=== PATIENT | female | born 1935 | race Caucasian/White ===

== ENCOUNTER 2020-04-11 14:09 | Inpatient (IN) | payer MEDICARE, SELFPAY ==
[2020-04-11] VITALS (18 sets, daily range): BP systolic 112–168; BP diastolic 66–89; PULSE 88–103; RESP 16–28; TEMP 36.7–37.1; O2SAT 81–100; BMI 22.3
--- NOTE | 2020-04-11 14:50 | XR_ITS ---
WS: [id number] PORTABLE CHEST HISTORY: dyspnea COMPARISON: 01/08/2020 Hyperinflated lungs with dense consolidation in the mid and lower RIGHT lung. Complete obscuration of the RIGHT diaphragm. Additional interstitial thickening at the LEFT lung base is probably chronic. S mall associated RIGHT pleural effusion. Cardiac size: Normal. Mediastinum/Aorta: Mild atherosclerosis aorta. Osteopenia. XR/XR chest 1V portable [id number] IMPRESSION: Dense consolidation consistent with pneumonia in the mid and lower RIGHT lung. Chronic emphysema. Small RIGHT pleural effusion.
--- NOTE | 2020-04-11 14:51 | ECG_ITS ---
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 Measurements Intervals [place] Rate: 96 P: 80 [place]: 136 QRS: -50 QRSD: 78 T: 79 QT: 328 QTc: 415 Interpretive Statements SINUS RHYTHM WITH OCCASIONAL SUPRAVENTRICULAR PREMATURE COMPLEXES LEFT AXIS DEVIATION [QRS AXIS < -30] LOW QRS VOLTAGE IN EXTREMITY LEADS [QRS DEFLECTION < 0.5 mV IN LIMB LEADS] POSSIBLE ANTERIOR MYOCARDIAL INFARCTION , OF INDETERMINATE AGE [30 ms Q WAVE IN V3/V4, OR R < 0.2 mV IN V4] No previous ECG available for comparison Electronically Signed On 04-11-2020 15:34:19 CDT by Ammy Carr M.D. [email or web address] Solutionsaultman [email or web address] community [email or web address]/[email or web address]/[id number]
--- NOTE | 2020-04-11 14:57 | W.ED.SOB ---
HPI - SOB/Dyspnea General: Chief Complaint: Shortness of Breath/Dyspnea Stated Complaint: low o2, sob Time Seen by Provider: 04/11/20 14:49 History of Present Illness: HPI Narrative: Patient presents to the ER with a complaint of severe shortness of breath. In triage her O2 saturation was 80% on 4 L of oxygen by nasal cannula. Patient was placed on a nonrebreather mask and O2 saturations have improved remained in the 80s. Patient is O2 dependent at home and does take breathing treatments. She states that her PCP is evaluating her for COPD/emphysema. Patient also complains of PND, orthopnea, and exertional dyspnea. She has slight swelling of her feet and ankles and also feels bloated in the abdomen. MD elicited complaint: shortness of breath Pertinent past history: COPD (probable) and pneumonia Onset (ago): week(s) Context: occurred during exertion Timing: constant and progressively worsening Severity: severe Exacerbating factors: lying flat, exertion and smoke Relieving factors: nothing Associated symptoms: Reports cough and diaphoresis Treatment prior to arrival: oxygen Review of Systems General: Reports: 10 or more systems reviewed and unremarkable except in HPI and below Const: Reports: diaphoresis Physical Exam Const: COMMON NORMALS: well nourished GENERAL APPEARANCE: cooperative, in distress and ill appearing HENMT: COMMON NORMALS: normocephalic and atraumatic HEAD & SCALP: normal to inspection, normocephalic and atraumatic Eye: GENERAL EYE: appearance normal, both eyes and all related structures Neck/C-Spine: COMMON NORMALS: full ROM, no lymphadenopathy and no meningeal signs GENERAL: Yes normal visual inspection CERVICAL SPINE: Yes cervical ROM normal and Yes normal cervical lordosis Chest: COMMONS NORMALS: normal inspection of the chest and normal palpation of entire chest wall Resp: EFFORT & INSPECTION: Yes respiratory distress, Yes labored and Yes uses accessory muscles AUSCULTATION: diminished lung sounds Cardio: COMMON NORMALS: regular rate, regular rhythm, S1 normal heart sound present and S2 normal heart sound present JUGULAR VENOUS DISTENTION: no JVD PALPATION: normal PMI RATE: regular rate RHYTHM: regular rhythm HEART SOUNDS: S1 normal heart sound present and S2 normal heart sound present GI: COMMON NORMALS: Soft to palpation and No hepatosplenomegaly present INSPECTION: Yes normal to inspection PALPATION: Yes Soft to palpation and Yes No hepatosplenomegaly present PERCUSSION: normal to percussion : COMMON NORMALS: Yes no CVA tenderness BLADDER/KIDNEY EXAM: Yes no CVA tenderness Back/Pelvis: COMMON NORMALS: no CVA tenderness, thoracic and lumbar spine normal to inspection and thoraco-lumbar ROM normal Extremity: COMMON NORMALS: normal to inspection, full ROM and capillary refill normal Neuro: MENINGEAL SIGNS: Yes no meningeal signs Skin: COMMON NORMALS: no rashes or lesions noted, no wounds and turgor normal GENERAL SKIN EXAM: no rashes or lesions noted, elasticity normal and turgor normal LESIONS: no lesions RASHES: no rashes TRAUMA: no lacerations or abrasions HAIR: normal NAILS: normal Course Vital Signs: Vital signs: Vital Signs Temperature 98.8 F 04/11/20 14:26 Pulse Rate 101 H 04/11/20 17:32 Respiratory Rate 18 04/11/20 17:32 Blood Pressure 121/88 04/11/20 17:32 Pulse Oximetry 97 04/11/20 17:32 MDM - SOB/Dyspnea Lab Data: Labs: Lab Results 04/11/20 04/11/20 04/11/20 Range/Units 14:55 14:59 14:59 WBC 14.9 H (4.0-10.0) 10^3/ uL RBC 6.02 H (4.1-5.3) 10^6/u L Hgb 17.0 H (11.5-15.3) g/dL Hct 50.5 H (37.0-47.0) % MCV 83.9 (81-99) fL MCH 28.2 (28.0-34.0) pg MCHC 33.7 (30.0-36.0) g/dL RDW 14.3 (12.1-15.1) % Plt Count 285 (130-400) 10^3/c mm MPV 8.9 (7.4-10.4) fL Neut % (Auto) 86.0 % Lymph % (Auto) 7.1 % Hardin % (Auto) 5.7 % Eos % (Auto) 0.1 % Baso % (Auto) 0.2 % Neut # (Auto) 12.80 H (1.8-7.7) 10^3/u L Lymph # (Auto) 1.1 (0.8-4.8) 10^3/u L Hardin # (Auto) 0.9 (0.2-0.9) 10^3/u L Eos # (Auto) 0.0 (0.0-0.8) 10^3/u L Baso # (Auto) 0.0 (0.0-0.1) 10^3/u L Nucleated RBC % (a uto) 0 % Nucleated RBCs # 0.0 /100WBC Specimen Type Arterial Sample Site Radial, left ABG pH 7.42 (7.35-7.45) ABG pCO2 32.1 L (35-45) mmHg ABG pO2 51.9 L (80.0-100.0) mmH g ABG HCO3 20.8 L (22-26) mmol/L ABG Base Excess -2.6 L (-2.0-2.0) mmol/ L Niraj Test Pos Hematocrit 50.5 H (37-47) % O2 Delivery Device Nrb O2 Liters/Min 15.0 % Public Relations Counselor ID cak Sodium 121 L (136-145) mmol/L Potassium 4.9 (3.5-5.1) mmol/L Chloride 85 L (98-107) mmol/L Carbon Dioxide 23 (22-29) mmol/L Anion Gap 17.9 (5-19) BUN 22 (8-23) mg/dL Creatinine 1.2 H (0.5-0.9) mg/dL Glucose 147 H (65-115) mg/dL Calculated Osmolal ity 251 L (285-295) mOsm/k g Lactic Acid (0.5-2.2) mmol/L Lactic Acid (Sepsi s) (0.5-2.2) mmol/L Calcium 8.8 (8.5-10.5) mg/dL Total Bilirubin 0.5 (0.15-1.2) mg/dL AST 28 (0-32) U/L ALT 28 (0-33) U/L Alkaline Phosphata se 81 (35-105) IU/L Troponin T Baselin e (0-10) ng/L Troponin T 120 Min nightmute (0-10) ng/L Delta Troponin T (0-10) ABS# NT-Pro-B Natriuret Pep 1496 H (0-450) pg/mL Total Protein 6.9 (6.6-8.7) g/dL Albumin 3.7 (3.5-5.2) g/dL Globulin 3.2 (1.3-4.6) g/dL Influenza Type A A g (Negative) Influenza Type B A g (Negative) 04/11/20 04/11/20 04/11/20 Range/Units 14:59 14:59 15:05 WBC (4.0-10.0) 10^3/ uL RBC (4.1-5.3) 10^6/u L Hgb (11.5-15.3) g/dL Hct (37.0-47.0) % MCV (81-99) fL MCH (28.0-34.0) pg MCHC (30.0-36.0) g/dL RDW (12.1-15.1) % Plt Count (130-400) 10^3/c mm MPV (7.4-10.4) fL Neut % (Auto) % Lymph % (Auto) % Hardin % (Auto) % Eos % (Auto) % Baso % (Auto) % Neut # (Auto) (1.8-7.7) 10^3/u L Lymph # (Auto) (0.8-4.8) 10^3/u L Hardin # (Auto) (0.2-0.9) 10^3/u L Eos # (Auto) (0.0-0.8) 10^3/u L Baso # (Auto) (0.0-0.1) 10^3/u L Nucleated RBC % (a uto) % Nucleated RBCs # /100WBC Specimen Type Sample Site ABG pH (7.35-7.45) ABG pCO2 (35-45) mmHg ABG pO2 (80.0-100.0) mmH g ABG HCO3 (22-26) mmol/L ABG Base Excess (-2.0-2.0) mmol/ L Niraj Test Hematocrit (37-47) % O2 Delivery Device O2 Liters/Min % Public Relations Counselor ID Sodium (136-145) mmol/L Potassium (3.5-5.1) mmol/L Chloride (98-107) mmol/L Carbon Dioxide (22-29) mmol/L Anion Gap (5-19) BUN (8-23) mg/dL Creatinine (0.5-0.9) mg/dL Glucose (65-115) mg/dL Calculated Osmolal ity (285-295) mOsm/k g Lactic Acid 2.2 (0.5-2.2) mmol/L Lactic Acid (Sepsi s) (0.5-2.2) mmol/L Calcium (8.5-10.5) mg/dL Total Bilirubin (0.15-1.2) mg/dL AST (0-32) U/L ALT (0-33) U/L Alkaline Phosphata se (35-105) IU/L Troponin T Baselin e 209 H* (0-10) ng/L Troponin T 120 Min nightm[place] (0-10) ng/L Delta Troponin T (0-10) ABS# NT-Pro-B Natriuret Pep (0-450) pg/mL Total Protein (6.6-8.7) g/dL Albumin (3.5-5.2) g/dL Globulin (1.3-4.6) g/dL Influenza Type A A g Negative (Negative) Influenza Type B A g Negative (Negative) 04/11/20 04/11/20 Range/Units 17:25 17:25 WBC (4.0-10.0) 10^3/ uL RBC (4.1-5.3) 10^6/u L Hgb (11.5-15.3) g/dL Hct (37.0-47.0) % MCV (81-99) fL MCH (28.0-34.0) pg MCHC (30.0-36.0) g/dL RDW (12.1-15.1) % Plt Count (130-400) 10^3/c mm MPV (7.4-10.4) fL Neut % (Auto) % Lymph % (Auto) % Hardin % (Auto) % Eos % (Auto) % Baso % (Auto) % Neut # (Auto) (1.8-7.7) 10^3/u L Lymph # (Auto) (0.8-4.8) 10^3/u L Hardin # (Auto) (0.2-0.9) 10^3/u L Eos # (Auto) (0.0-0.8) 10^3/u L Baso # (Auto) (0.0-0.1) 10^3/u L Nucleated RBC % (a uto) % Nucleated RBCs # /100WBC Specimen Type Sample Site ABG pH (7.35-7.45) ABG pCO2 (35-45) mmHg ABG pO2 (80.0-100.0) mmH g ABG HCO3 (22-26) mmol/L ABG Base Excess (-2.0-2.0) mmol/ L Niraj Test Hematocrit (37-47) % O2 Delivery Device O2 Liters/Min % Public Relations Counselor ID Sodium (136-145) mmol/L Potassium (3.5-5.1) mmol/L Chloride (98-107) mmol/L Carbon Dioxide (22-29) mmol/L Anion Gap (5-19) BUN (8-23) mg/dL Creatinine (0.5-0.9) mg/dL Glucose (65-115) mg/dL Calculated Osmolal ity (285-295) mOsm/k g Lactic Acid (0.5-2.2) mmol/L Lactic Acid (Sepsi s) 2.3 H (0.5-2.2) mmol/L Calcium (8.5-10.5) mg/dL Total Bilirubin (0.15-1.2) mg/dL AST (0-32) U/L ALT (0-33) U/L Alkaline Phosphata se (35-105) IU/L Troponin T Baselin e (0-10) ng/L Troponin T 120 Min [place] 293.6 H (0-10) ng/L Delta Troponin T 84.6 H* (0-10) ABS# NT-Pro-B Natriuret Pep (0-450) pg/mL Total Protein (6.6-8.7) g/dL Albumin (3.5-5.2) g/dL Globulin (1.3-4.6) g/dL Influenza Type A A g (Negative) Influenza Type B A g (Negative) Discharge Plan Discharge Patient Disposition: Admitted As Inpatient Clinical Impression: Acute exacerbation of chronic obstructive airways disease, Non-ST elevation NH (NSTEMI) Pneumonia Qualifiers: Pneumonia type: due to unspecified organism Laterality: right Lung location: lower lobe of lung Qualified Code(s): J18.9 - Pneumonia, unspecified organism Congestive heart failure Qualifiers: Heart failure type: unspecified Heart failure chronicity: acute Qualified Code(s): I50.9 - Heart failure, unspecified Condition: Fair Referrals: Jese Marinelli MD [Primary Care Provider] - Coding Level of Care Code ED Photo Engraver for Chg Fwd Exam Comprehensive
[2020-04-11] MEDS: ipratropium-albuterol 3 mL Neb INHALATION (15:04)
[2020-04-11 15:08] LABS: ABG PCO2 32.1 mmHg (35-45); ABG PH Result 7.42 (7.35-7.45); Arterial Blood Gas Hematocrit 50.5 % (37-47); Base Excess ABG -2.6 mmol/L (-2.0-2.0); Blood Gas Allen Test Pos; Blood Gas Sample Site Radial, left; Blood Gas Sample Type Arterial; HCO3 ABG 20.8 mmol/L (22-26); Oxygen Device NRB; PO2 ABG 51.9 mmHg (80.0-100.0)
[2020-04-11 15:18] LABS: Basophils % 0.2 %; Eosinophils % 0.1 %; Hematocrit 50.5 % (37.0-47.0); Lymphocytes # 1.1 10^3/uL (0.8-4.8); Lymphocytes % 7.1 %; Mean Corpuscular HGB Conc 33.7 g/dL (30.0-36.0); Mean Corpuscular Hemoglobin 28.2 pg (28.0-34.0); Mean Corpuscular Volume 83.9 fL (81-99); Mean Platelet Volume 8.9 fL (7.4-10.4); Monocytes # 0.9 10^3/uL (0.2-0.9); Monocytes % 5.7 %; Nucleated Red Blood Cells % 0 %; Platelet Count 285 10^3/cmm (130-400); Red Blood Count 6.02 10^6/uL (4.1-5.3); Red Cell Distribution Width 14.3 % (12.1-15.1); White Blood Count 14.9 10^3/uL (4.0-10.0)
[2020-04-11 15:19] LABS: Lactic Sepsis W/Reflex 2.2 mmol/L (0.5-2.2)
[2020-04-11 15:26] LABS: Troponin(5th) Baseline 209 ng/L (0-10)
[2020-04-11] MEDS: sodium chloride 0.9% 500 ML 999 ML IV (15:28)
[2020-04-11 15:31] LABS: Alanine Aminotransferase 28 U/L (0-33); Albumin Level 3.7 g/dL (3.5-5.2); Alkaline Phosphatase 81 IU/L (35-105); Anion Gap 17.9 (5-19); Aspartate Amino Transferase 28 U/L (0-32); Blood Urea Nitrogen 22 mg/dL (8-23); Calcium 8.8 mg/dL (8.5-10.5); Carbon Dioxide 23 mmol/L (22-29); Chloride 85 mmol/L (98-107); Globulin 3.2 g/dL (1.3-4.6); Glucose 147 mg/dL (65-115); NT Pro B Type Natriuretic Pept 1496 pg/mL (0-450); Osmolality Calculated 251 mOsm/kg (285-295); Potassium 4.9 mmol/L (3.5-5.1); Sodium 121 mmol/L (136-145); Total Bilirubin 0.5 mg/dL (0.15-1.2); Total Protein 6.9 g/dL (6.6-8.7)
[2020-04-11] MEDS: cefTRIAXone 1,000 MG in sodium chloride 0.9% (plus) 50 ML 100 MG IV (16:09)
[2020-04-11] MEDS: azithromycin 500 MG in sodium chloride 0.9% 250 ML 250 MG IV (16:10)
--- NOTE | 2020-04-11 16:22 | PC.NURSE ---
pt on droplet precautions after covid 19 test
[2020-04-11 16:50] LABS: Reflex Lactate Order REFLEX LACTIC ORDERD
--- NOTE | 2020-04-11 16:51 | ECG_ITS ---
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 Measurements Intervals [place] Rate: 96 P: 72 NE: 133 QRS: -44 QRSD: 79 T: 99 QT: 343 QTc: 435 Interpretive Statements SINUS RHYTHM WITH OCCASIONAL SUPRAVENTRICULAR PREMATURE COMPLEXES LEFT AXIS DEVIATION [QRS AXIS < -30] LOW QRS VOLTAGE IN EXTREMITY LEADS [QRS DEFLECTION < 0.5 mV IN LIMB LEADS] ANTEROSEPTAL MYOCARDIAL INFARCTION , OF INDETERMINATE AGE [40+ ms Q WAVE IN V1-V4] Compared to ECG 04/11/2020 15:11:26 No significant changes Electronically Signed On 04-11-2020 17:15:37 CDT by Ammy Carr M.D. [id number]
[2020-04-11 17:10] LABS: Influenza A by IFA Negative (Negative); Influenza B by IFA Negative (Negative)
[2020-04-11 17:48] LABS: Lactic Acid level (Lactate) 2.3 mmol/L (0.5-2.2)
[2020-04-11 17:57] LABS: Troponin 5 2HR 293.6 ng/L (0-10); Troponin 5 2HR Delta 84.6 ABS# (0-10)
--- NOTE | 2020-04-11 18:28 | P.HP_ITS ---
Providers/Chief Complaint Primary Care Provider: Jese Marinelli MD Chief Complaint: low o2, sob History of Present Illness Natasha Larose is a 84 year old female who presents to the hospital reporting she is short of breath. She reports she has been short of breath at least for the last several months, but it is been worse lately. She denies any fever. She reports she has been coughing. She has had some nausea but no vomiting. She denies any history of COVID exposure. She denies any hemoptysis. She has no chest discomfort. She reports her legs have been very swollen and she is been unable to lay flat at night. She reports she was recently put on oxygen by her physician. While in the emergency department she was noted to be very hypoxic and therefore was placed on a nonrebreather initially, and transition to BiPAP. Review of Systems General: Reports: 10 or more systems reviewed and unremarkable except in HPI and below Const: Denies: fever(s) or chills Eyes: Denies: change in vision ENMT: Denies: throat pain Card: Denies: chest pain Resp: Reports: dyspnea, productive cough and wheezing; Denies: hemoptysis GI: Reports: nausea; Denies: abdominal pain or vomiting : Denies: flank pain Musc: Denies: neck pain Skin/Breast: Denies: rash Neuro: Denies: headache(s) Psych: Denies: anxiety Endo: Denies: polyuria Hector/Lymph: Denies: easy bruising All/Imm: Denies: urticaria Medications/Allergies Home Medications Medication Instructions Recorded Confirmed Last Taken Type albuterol sulfate 2 puff INHALATION Q4H PRN 04/11/20 04/11/20 Unknown History aspirin 81 mg PO DAILY 04/11/20 04/11/20 04/10/20 History hydrocodone-acetaminophen 1 tab PO Q6H PRN 04/11/20 04/11/20 Unknown History lisinopril-hydrochlorothiazide 1 tab PO DAILY 04/11/20 04/11/20 04/10/20 History ropinirole 2 mg PO BID 04/11/20 04/11/20 04/10/20 History tramadol 50 mg PO DAILY PRN 04/11/20 04/11/20 04/11/20 History Allergies Allergy/AdvReac Type Severity Reaction Status Date / Time amoxicillin Allergy Unknown Unknown Verified 07/09/20 15:08 pineapple Allergy Unknown Unknown Verified 04/11/20 15:08 seafood Allergy Unknown Unknown Uncoded 04/11/20 15:08 PFSH Acute PFSH: Medical History (Updated 04/11/20 @ 18:48 by Landon Lagunas MD) COPD (chronic obstructive pulmonary disease) Hyperlipidemia Hypertension Restless leg syndrome Tobacco dependency Surgical History (Updated 04/11/20 @ 18:43 by Landon Lagunas MD) History of knee surgery History of tonsillectomy Family History (Updated 04/11/20 @ 18:43 by Landon Lagunas MD) Other CAD (coronary artery disease) Social History (Updated 04/11/20 @ 18:43 by Landon Lagunas MD) Smoking and tobacco status: current every day smoker Alcohol intake: never Substance/Drug Use: never Vitals/I&O/Wt Last Vital Signs Temp 98.8 F 04/11/20 14:26 Pulse 101 H 04/11/20 17:32 Resp 18 04/11/20 17:32 BP 121/88 04/11/20 17:32 Pulse Ox 97 04/11/20 17:32 04/11/20 04/11/20 04/11/20 06:59 14:59 22:59 Intake Total 50 / 50 Balance 50 / 50 Weight last 48 hrs Weight 58.967 kg Physical Exam Narrative: EXAM NARRATIVE: General exam is a white female, on BiPAP, with mild to moderate respiratory distress HEENT: Oropharynx not examined secondary to BiPAP. Pupils equally round. Neck is supple no lymphadenopathy or thyromegaly Cardiovascular regular rate and rhythm, heart sounds distant, no obvious murmur Lungs diminished breath sounds bilaterally. Bilateral expiratory wheezes. Markedly diminished breath sounds on the right. Abdomen is soft, positive bowel sounds, no obvious organomegaly. deferred Extremities 2+ edema bilaterally to the knees Neuro no obvious focal deficits Skin no rash Data : 04/11/20 14:59 04/11/20 14:59 Micro: Microbiology 04/11/20 17:25 Blood Culture - Preliminary Blood SPECIMEN COLLECTED 04/11/20 14:59 Blood Culture - Preliminary Blood SPECIMEN COLLECTED Other data: EKG demonstrates normal sinus rhythm, normal axis, poor R wave progression, Q waves anteriorly. Cannot rule out previous anterior septal myocardial infarction. Troponin baseline is 209, with 120 minutes of approximately 290 and a delta of approximately 85. BNP elevated at 1496. Influenza negative. COVID pending. Chest x-ray shows right lung pneumonia, possible small effusion. A&P Assessment and plan (1) Pneumonia: Admission to ICU. High oxygen requirement of 70% by BiPAP. Significant right lung pneumonia, lower lobe. Cannot exclude malignancy. Initiate vancomycin, cefepime secondary to penicillin allergy. Check sputum culture CT chest, when able Requiring BiPAP Rule out COVID Status: Acute Qualifiers: Laterality: right Lung location: lower lobe of lung Pneumonia type: due to unspecified organism Qualified Code(s): J18.9 - Pneumonia, unspecified organism (2) Non-ST elevation AL (NSTEMI): No current chest pain Significant change in delta troponin abnormal EKG possibly showing previous anterior AL Full dose anticoagulation Aspirin Statin Telemetry Status: Acute (3) Congestive heart failure: Unknown type Significant lower extremity edema Lasix 60 mg IV now and 40 mg every 12 hours Check echocardiogram Status: Acute Qualifiers: Heart failure chronicity: acute Heart failure type: unspecified Qualified Code(s): I50.9 - Heart failure, unspecified (4) Acute exacerbation of chronic obstructive airways disease: IV steroids Frequent nebs, inhaled steroids BiPAP Status: Acute (5) Hyponatremia: Lasix IV currently. Likely attributed to heart failure. Repeat BMP, 4 hours No IV fluids. She is fluid overloaded. Status: Acute (6) Respiratory failure: BiPAP See notations above Status: Acute (7) Tobacco dependency: Counseled on abstinence Status: Acute Additional A&P Information Elevated blood sugar. Check A1c. Hypertension History of hyperlipidemia. Statin will be initiated. This is secondary to elevated troponin Restless leg syndrome, continue current medicines Multiple other medical problems as outlined in past medical history. Full code Lovenox will serve for DVT prophylaxis. Check urinalysis, TSH Attestations Medical Necessity Statement*: Will need greater than 2 midnight stay for treatment of pneumonia and multiple other comorbidities Critical Care Time: 45 minutes spent at bedside in critical care when this patient with respiratory failure requiring BiPAP on high amount of FiO2 with multiple comorbidities with high chance of needing intubation. Coding Level of Care Code Acute Assistant Executive Housekeeper for Jojo Story Diagnoses Pneumonia J18.9 Laterality: right Lung location: lower lobe of lung Pneumonia type: due to unspecified organism Non-ST elevation AL (NSTEMI) I21.4 Congestive heart failure I50.9 Heart failure chronicity: acute Heart failure type: unspecified Acute exacerbation of chronic obstructive airways disease J44.1 Hyponatremia E87.1 Respiratory failure J96.90 Tobacco dependency F17.200
[2020-04-11] MEDS: FUROsemide 10 mg/mL SDV 10mL 60 MG IVP (20:13)
--- NOTE | 2020-04-11 20:30 | PC.NURSE ---
Received report from PITO Bowling. Patient brought to room via ER stretcher. Moved to ICU bed. In no apparent distress. Patient is wearing Bipap and respiratory is in room and was present on transfer. Patient states pain is 0/10 at this time. Vital signs are stable. Call light is in place. Patient is resting comfortably.
--- NOTE | 2020-04-11 21:26 | PC.PHAR ---
Vancomycin is dosed at 750mg IVPB every 24 hours to produce a predicted trough level of 17.51 (population based pharmacokinetic analysis). A trough level has been ordered from the lab to be obtained before the fourth dose to confirm and adjust if needed.
[2020-04-11] MEDS: enoxaparin 60 mg/0.6 mL Syringe SUBCUT (21:27)
[2020-04-11 21:33] LABS: Add Urine Microscopic? NO
[2020-04-11] MEDS: cefepime 2,000 MG in sodium chloride 0.9% (plus) 50 ML 100 MG IV (21:47)
[2020-04-11 22:06] LABS: Thyroid Stimulating Hormone 3.27 uIU/mL (0.27-4.20); Troponin 5 6HR 233.7 ng/L (0-10); Troponin 5 6HR Delta 24.7 ng/L (0-12)
[2020-04-11] MEDS: vancomycin 750 MG in sodium chloride 0.9% 250 ML 250 MG IV (22:23)
[2020-04-11 22:34] LABS: Bilirubin Urine Neg (NEGATIVE); Blood Urine Neg (Negative); Glucose Urine UA Norm (Normal); Ketones Urine Negative (Negative); Leukocyte Esterase Urine Negative (Negative); Nitrate Urine Negative (Negative); Protein Urine Neg (Negative); Urine Appearance Clear (CLEAR); Urine Color Yellow (Yellow); Urobilinogen Urine Norm (Negative); pH Urine 5 (5-7)
[2020-04-11 22:41] LABS: Anion Gap 16.9 (5-19); Blood Urea Nitrogen 20 mg/dL (8-23); Calcium 8.7 mg/dL (8.5-10.5); Carbon Dioxide 24 mmol/L (22-29); Chloride 86 mmol/L (98-107); Glucose 191 mg/dL (65-115); Osmolality Calculated 256 mOsm/kg (285-295); Potassium 4.9 mmol/L (3.5-5.1); Sodium 122 mmol/L (136-145)
--- NOTE | 2020-04-11 22:53 | PC.NURSE ---
Lab called critical value of 6 hour Troponin 233.7 and Delta is positive at 24.7. Dr. Moreau notified and no new orders at this time. Will continue to monitor.
[2020-04-12] VITALS (37 sets, daily range): BP systolic 80–143; BP diastolic 48–110; PULSE 72–143; RESP 8–32; TEMP 37.1; O2SAT 87–100
[2020-04-12 00:11] LABS: Estmated Average Glucose 140; Hemoglobin A1C 6.5 % (4.0-6.0)
[2020-04-12] MEDS: LORazepam 2 mg/mL INJ 1 mL 0.5 MG IVP (02:16)
[2020-04-12 04:17] LABS: Alanine Aminotransferase 24 U/L (0-33); Albumin Level 3.2 g/dL (3.5-5.2); Alkaline Phosphatase 70 IU/L (35-105); Anion Gap 18.1 (5-19); Aspartate Amino Transferase 24 U/L (0-32); Blood Urea Nitrogen 22 mg/dL (8-23); Calcium 8.1 mg/dL (8.5-10.5); Carbon Dioxide 21 mmol/L (22-29); Chloride 90 mmol/L (98-107); Globulin 2.9 g/dL (1.3-4.6); Glucose 192 mg/dL (65-115); Osmolality Calculated 262 mOsm/kg (285-295); Potassium 4.1 mmol/L (3.5-5.1); Sodium 125 mmol/L (136-145); Total Bilirubin 0.4 mg/dL (0.15-1.2); Total Protein 6.1 g/dL (6.6-8.7)
[2020-04-12] MEDS: cefepime 2,000 MG in sodium chloride 0.9% (plus) 50 ML 100 MG IV ×3 (05:28→21:17)
[2020-04-12] MEDS: FUROsemide 10 mg/mL SDV 4mL 40 MG IVP ×2 (05:32→17:07)
--- NOTE | 2020-04-12 07:26 | XR_ITS ---
WS: [id number] PORTABLE CHEST HISTORY: Follow-up pneumonia COMPARISON: 04/11/2020 Marked pulmonary hyperinflation with diffuse coarse chronic interstitial thickening. Pneumonia in the mid and lower RIGHT lung field has moderately improved since the prior study. Persistent dense conso lidation. Small RIGHT pleural effusion. No pneumothorax. Cardiac size: Normal. Mediastinum/Aorta: Mild atherosclerosis aorta. Thoracolumbar scoliosis and osteopenia. XR/XR chest 1V portable [id number] IMPRESSION: 1. Moderate improvement in the mid and lower RIGHT lung pneumonia and small ef fusion. 2. Severe emphysema and chronic interstitial disease.
--- NOTE | 2020-04-12 07:28 | PM.PN ---
Subjective Subjective: Interval history: Natasha reports she feels little bit better. Nurses alerted me she was anxious through the night. Significant diuresis occurred last night Medications: Reviewed: Yes Vitals/I&O/Wt Last Vital Signs Temp 98.0 F 04/11/20 20:39 Pulse 107 H 04/12/20 06:00 Resp 19 H 04/12/20 05:00 BP 138/86 04/12/20 06:00 Pulse Ox 100 04/12/20 06:00 04/11/20 04/12/20 04/12/20 22:59 06:59 14:59 Intake Total 100 / 100 Output Total 2500 / 2500 Balance 100 / 100 -2500 / -2400 Weight last 48 hrs Weight 60.016 kg Weight 58.967 kg Physical Exam Narrative: EXAM NARRATIVE: General exam is no apparent distress. BiPAP is non-. Cardiovascular regular in rhythm with frequent premature beats. Telemetry seems to indicate sinus tachycardia with frequent PACs. Lungs diminished breath sounds bilaterally. No wheezing Abdomen is soft with positive bowel sounds Extremities 1+ edema left greater than right Urinary Catheter Management^: David: Cath Placed During This Visit: yes Reason for Continuing Indwelling Catheter: Accurate Measurement of Urinary Output in Critically Ill Patients Urinary Catheter Date of Insertion: 04/11/20 Urinary Catheter Time of Insertion: 21:00 Data : 04/11/20 14:59 04/12/20 03:05 Micro: Microbiology 04/11/20 17:25 Blood Culture - Preliminary Blood SPECIMEN COLLECTED 04/11/20 14:59 Blood Culture - Preliminary Blood SPECIMEN COLLECTED A&P Assessment and plan (1) Pneumonia: Required BiPAP all last night. On 60% FiO2. Continue stay in ICU. Continue vancomycin and cefepime Await sputum culture CT chest, when able Wean BiPAP off as tolerated Awaiting COVID test Repeat chest x-ray today Status: Acute Qualifiers: Laterality: right Lung location: lower lobe of lung Pneumonia type: due to unspecified organism Qualified Code(s): J18.9 - Pneumonia, unspecified organism (2) Non-ST elevation MO (NSTEMI): No current chest pain Significant change in delta troponin abnormal EKG possibly showing previous anterior MO Full dose anticoagulation Aspirin Statin Telemetry Echocardiogram Consider nuclear stress test when more stable Status: Acute (3) Congestive heart failure: Unknown type Significant lower extremity edema Lasix 40 mg every 12 hours. She is diuresing appropriately Await echocardiogram Low-dose beta-viry will be added secondary to her frequent PACs, tachycardia. Magnesium level pending. TSH normal. Repeat EKG. Status: Acute Qualifiers: Heart failure chronicity: acute Heart failure type: unspecified Qualified Code(s): I50.9 - Heart failure, unspecified (4) Acute exacerbation of chronic obstructive airways disease: IV steroids Frequent nebs, inhaled steroids BiPAP Status: Acute (5) Hyponatremia: Lasix IV currently. Likely attributed to heart failure. Sodium level is improving Status: Acute (6) Respiratory failure: BiPAP. Wean off if possible See notations above Status: Acute (7) Tobacco dependency: Counseled on abstinence Status: Acute Additional A&P Information Elevated blood sugar. Check A1c. Hypertension History of hyperlipidemia. Statin will be initiated. This is secondary to elevated troponin Restless leg syndrome, continue current medicines Multiple other medical problems as outlined in past medical history. Full code Lovenox will serve for DVT prophylaxis. Urinalysis was checked and normal Attestations Medical Necessity Statement*: Needs continued ICU stay secondary to respiratory failure with high FiO2 requirement Critical Care Time: 31 minutes of ICU time at bedside reviewing patient's current condition, exam, review of laboratory, and decision making regarding this patient with multiorgan system involvement with respiratory failure requiring high amount of FiO2 and high risk for intubation and mechanical ventilation. Coding Level of Care Code Acute Wet Roller for [facility] Fwd Diagnoses Pneumonia J18.9 Laterality: right Lung location: lower lobe of lung Pneumonia type: due to unspecified organism Non-ST elevation MO (NSTEMI) I21.4 Congestive heart failure I50.9 Heart failure chronicity: acute Heart failure type: unspecified Acute exacerbation of chronic obstructive airways disease J44.1 Hyponatremia E87.1 Respiratory failure J96.90 Tobacco dependency F17.200
--- NOTE | 2020-04-12 07:34 | ECG_ITS ---
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 Measurements Intervals [place] Rate: 109 P: CA: -1 QRS: 147 QRSD: 75 T: 198 QT: 319 QTc: 430 Interpretive Statements ATRIAL FIBRILLATION WITH RAPID VENTRICULAR RESPONSE INDETERMINATE AXIS LOW QRS VOLTAGE IN EXTREMITY LEADS [QRS DEFLECTION < 0.5 mV IN LIMB LEADS] POSSIBLE ANTERIOR MYOCARDIAL INFARCTION [30 ms Q WAVE IN V3/V4, OR R < 0.2 mV IN V4], PROBABLY OLD MODERATE T-WAVE ABNORMALITY, CONSIDER LATERAL ISCHEMIA [-0.1+ mV T WAVE IN I/aVL/V5/V6] MODERATE T-WAVE ABNORMALITY, CONSIDER INFERIOR ISCHEMIA [-0.1+ mV T WAVE IN II/aVF] Compared to ECG 04/11/2020 16:48:45 no sig change Electronically Signed On 04-12-2020 19:06:08 CDT by Rufina Mendoza M.D. [id number]
[2020-04-12 07:38] LABS: Phosphorus 4.3 mg/dL (2.5-4.5)
[2020-04-12] MEDS: ipratropium-albuterol 3 mL Neb INHALATION ×3 (08:03→20:39)
[2020-04-12] MEDS: budesonide 0.5 mg/2 mL Neb INHALATION ×2 (08:03→20:39)
[2020-04-12] MEDS: metoprolol tartrate 25 mg Tablet 12.5 MG PO ×2 (08:08→20:18)
[2020-04-12] MEDS: atorvastatin 40 mg Tablet PO (08:08)
[2020-04-12] MEDS: ropinirole 2 mg Tablet PO ×2 (08:08→17:07)
[2020-04-12] MEDS: aspirin 325 mg EC Tablet PO (08:08)
[2020-04-12] MEDS: enoxaparin 60 mg/0.6 mL Syringe SUBCUT ×2 (08:09→21:16)
--- NOTE | 2020-04-12 13:06 | PC.RESP ---
Smoking Cessation and Pulmonary Rehab information with a schedule of classes sent to patient.
[2020-04-12 14:34] LABS: Basophils % 0.1 %; Lymphocytes # 0.9 10^3/uL (0.8-4.8); Lymphocytes % 7.6 %; Mean Corpuscular HGB Conc 33.3 g/dL (30.0-36.0); Mean Corpuscular Hemoglobin 27.8 pg (28.0-34.0); Mean Corpuscular Volume 83.3 fL (81-99); Mean Platelet Volume 8.8 fL (7.4-10.4); Monocytes # 0.8 10^3/uL (0.2-0.9); Monocytes % 6.9 %; Neutrophils # 9.96 10^3/uL (1.8-7.7); Neutrophils % 84.3 %; Nucleated Red Blood Cells % 0 %; Platelet Count 245 10^3/cmm (130-400); Red Cell Distribution Width 14.2 % (12.1-15.1); White Blood Count 11.8 10^3/uL (4.0-10.0)
[2020-04-12] MEDS: ondansetron 2 mg/ML SDV 2 mL 4 MG IVP ×2 (19:03→22:27)
[2020-04-12] MEDS: vancomycin 750 MG in sodium chloride 0.9% 250 ML 250 MG IV (22:45)
--- NOTE | 2020-04-12 23:41 | ECG_ITS ---
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 Measurements Intervals [place] Rate: 97 P: GA: -1 QRS: -12 QRSD: 81 T: 223 QT: 395 QTc: 502 Interpretive Statements Sinus rhythm with frequent premature atrial ectopy INDETERMINATE AXIS PATTERN CONSISTENT WITH PULMONARY DISEASE MODERATE T-WAVE ABNORMALITY, CONSIDER LATERAL ISCHEMIA [-0.1+ mV T WAVE IN I/aVL/V5/V6] MODERATE T-WAVE ABNORMALITY, CONSIDER INFERIOR ISCHEMIA [-0.1+ mV T WAVE IN II/aVF] Compared to ECG 04/12/2020 06:05:03 Myocardial infarct finding no longer present T-wave abnormality still present Possible ischemia still present Electronically Signed On 04-13-2020 10:29:44 CDT by Malvin Owens M.D. [id number]
[2020-04-12] MEDS: HYDROcodone-APAP 7.5-325 mg/15 mL UDC 5 ML PO (23:45)
[2020-04-12 23:53] LABS: Glucose Point of Care 177 mg/dL (70-110)
[2020-04-13] VITALS (35 sets, daily range): BP systolic 74–129; BP diastolic 49–86; PULSE 79–122; RESP 13–23; TEMP 36.7–37.2; O2SAT 81–92
[2020-04-13] MEDS: ipratropium-albuterol 3 mL Neb INHALATION ×4 (03:14→19:59)
[2020-04-13] MEDS: lanolin oint 7 gm 1 APPLIC TOPICAL (03:23)
[2020-04-13] MEDS: FUROsemide 10 mg/mL SDV 4mL 40 MG IVP (05:23)
[2020-04-13] MEDS: cefepime 2,000 MG in sodium chloride 0.9% (plus) 50 ML 100 MG IV ×2 (05:24→17:41)
[2020-04-13 05:48] LABS: Basophils % 0.1 %; Hematocrit 41.1 % (37.0-47.0); Hemoglobin 14.3 g/dL (11.5-15.3); Lymphocytes # 0.5 10^3/uL (0.8-4.8); Lymphocytes % 3.6 %; Mean Corpuscular HGB Conc 34.8 g/dL (30.0-36.0); Mean Corpuscular Hemoglobin 29.2 pg (28.0-34.0); Mean Corpuscular Volume 83.9 fL (81-99); Mean Platelet Volume 9.1 fL (7.4-10.4); Monocytes # 0.7 10^3/uL (0.2-0.9); Monocytes % 4.7 %; Neutrophils # 13.48 10^3/uL (1.8-7.7); Neutrophils % 90.8 %; Nucleated Red Blood Cells % 0 %; Platelet Count 208 10^3/cmm (130-400); Red Cell Distribution Width 14.3 % (12.1-15.1); White Blood Count 14.8 10^3/uL (4.0-10.0)
[2020-04-13 06:43] LABS: Alanine Aminotransferase 24 U/L (0-33); Alkaline Phosphatase 57 IU/L (35-105); Anion Gap 16.9 (5-19); Aspartate Amino Transferase 42 U/L (0-32); Blood Urea Nitrogen 30 mg/dL (8-23); Carbon Dioxide 25 mmol/L (22-29); Chloride 87 mmol/L (98-107); Globulin 2.3 g/dL (1.3-4.6); Glucose 147 mg/dL (65-115); Osmolality Calculated 260 mOsm/kg (285-295); Potassium 3.9 mmol/L (3.5-5.1); Sodium 125 mmol/L (136-145); Total Bilirubin 0.3 mg/dL (0.15-1.2); Total Protein 5.3 g/dL (6.6-8.7)
[2020-04-13] MEDS: budesonide 0.5 mg/2 mL Neb INHALATION ×2 (07:32→19:58)
[2020-04-13] MEDS: metoprolol tartrate 25 mg Tablet 12.5 MG PO ×2 (07:41→20:48)
[2020-04-13 07:53] LABS: Coronavirus Lab Test PTC SEE REPORT
--- NOTE | 2020-04-13 08:15 | PM.PN ---
Subjective Subjective: Interval history: Natasha reports she feels better. She can lay flat. She denies chest pain. Medications: Reviewed: Yes Vitals/I&O/Wt Last Vital Signs Temp 98.2 F 04/13/20 06:00 Pulse 114 H 04/13/20 07:36 Resp 23 H 04/13/20 07:35 BP 103/52 04/13/20 06:00 Pulse Ox 90 04/13/20 07:35 04/12/20 04/13/20 04/13/20 22:59 06:59 14:59 Intake Total 590 / 930 730 / 1660 Output Total 2065 / 2065 805 / 2870 Balance -1475 / -1135 -75 / -1210 Weight last 48 hrs Weight 57.153 kg Weight 60.016 kg Weight 58.967 kg Physical Exam Narrative: EXAM NARRATIVE: General exam is no apparent distress. On high flow oxygen 60 to 70% Cardiovascular regular in rhythm with frequent premature beats. Telemetry seems to indicate sinus tachycardia with frequent PACs. Lungs diminished breath sounds bilaterally. Right greater than left. Abdomen is soft with positive bowel sounds Extremities edema significantly improved Urinary Catheter Management^: David: Cath Placed During This Visit: yes Reason for Continuing Indwelling Catheter: Accurate Measurement of Urinary Output in Critically Ill Patients Urinary Catheter Date of Insertion: 04/11/20 Urinary Catheter Time of Insertion: 21:00 Data : 04/13/20 04:49 04/13/20 04:49 Micro: Microbiology 04/11/20 17:25 Blood Culture - Preliminary Blood NEGATIVE TO DATE 04/11/20 14:59 Blood Culture - Preliminary Blood NEGATIVE TO DATE 04/11/20 21:40 MRSA Culture - Final Nose Other data: COVID testing was negative. Echocardiogram is pending. A&P Assessment and plan (1) Pneumonia: Still requiring a high amount of FiO2 Continue vancomycin and cefepime Await sputum culture CT chest today. She is able to lie flat Note the COVID testing was negative. Status: Acute Qualifiers: Laterality: right Lung location: lower lobe of lung Pneumonia type: due to unspecified organism Qualified Code(s): J18.9 - Pneumonia, unspecified organism (2) Non-ST elevation NE (NSTEMI): No current chest pain Significant change in delta troponin abnormal EKG possibly showing previous anterior NE Full dose anticoagulation Aspirin Statin Telemetry Await echocardiogram Consider nuclear stress test when more stable Status: Acute (3) Congestive heart failure: Unknown type. Still awaiting echocardiogram Much more compensated. Hold the rest of her Lasix doses today and will evaluate tomorrow for further dosing. Continue low-dose beta-viry. TSH normal. Status: Acute Qualifiers: Heart failure chronicity: acute Heart failure type: unspecified Qualified Code(s): I50.9 - Heart failure, unspecified (4) Acute exacerbation of chronic obstructive airways disease: Discontinue IV steroids. Change to p.o. Frequent nebs, inhaled steroids BiPAP if needed Status: Acute (5) Hyponatremia: Slight improvement. Likely attributed to heart failure but cannot rule out SIADH with right lung process. Fluid restrict. Status: Acute (6) Respiratory failure: Improving Add incentive spirometry CTA chest today Status: Acute (7) Tobacco dependency: Counseled on abstinence Status: Acute Additional A&P Information Elevated blood sugar. A1c 6.5% Hypertension History of hyperlipidemia. Statin will be initiated. This is secondary to elevated troponin Restless leg syndrome, continue current medicines Multiple other medical problems as outlined in past medical history. Full code Lovenox will serve for DVT prophylaxis. Urinalysis was checked and normal Attestations Medical Necessity Statement*: Needs continued ICU stay her secondary to requirement for significant amount of FiO2 at this time. 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
[2020-04-13] MEDS: ondansetron 2 mg/ML SDV 2 mL 4 MG IVP (09:07)
[2020-04-13] MEDS: atorvastatin 40 mg Tablet PO (09:08)
[2020-04-13] MEDS: predniSONE 20 mg Tablet 40 MG PO (09:08)
[2020-04-13] MEDS: aspirin 325 mg EC Tablet PO (09:08)
[2020-04-13] MEDS: enoxaparin 60 mg/0.6 mL Syringe SUBCUT (09:08)
[2020-04-13] MEDS: ropinirole 2 mg Tablet PO ×2 (09:08→17:41)
[2020-04-13] MEDS: HYDROcodone-acetaminophen 5-325 mg Tablet 1 TAB PO (09:54)
--- NOTE | 2020-04-13 15:12 | CTR_ITS ---
PROCEDURE INFORMATION: Exam: CT Angiography Chest With Contrast Exam date and time: 04/13/2020 3:41 PM Age: 84 years old Clinical indication: Shortness of breath; Additional info: Hypoxia TECHNIQUE: Imaging protocol: Computed tomographic angiography of the chest with intravenous contrast. Axial, coronal and sagittal reformatted images were created and reviewed. 3D rendering: MIP and/or 3D reconstructed images were created by the technologist. Radiation optimization: All CT scans at this facility use at least one of these dose optimization techniques: automated exposure control; mA and/or kV adjustment per patient size (includes targeted exams where dose is matched to clinical indication); or iterative reconstruction. Contrast material: VISI 320; Contrast volume: 95 ml; Contrast route: INTRAVENOUS (IV); COMPARISON: CT chest [facility] [id number] 03/02/2014 10:33 AM RADIATION DOSE METRICS: Total DLP (mGy-cm): 577.12 FINDINGS: Pulmonary arteries: Contrast opacification satisfactory. No intraluminal filling defect. Aorta: Severe atherosclerotic disease. No aneurysm or dissection. Lungs: Suspected right hilar mass, encasing and narrowing the bronchovascular structures and occluding the right lower lobe bronchus. Dense right lower lobe consolidation, compatible with postobstructive pneumonia versus mass. Prominent interstitial thickening and reticulonodular infiltration in the right upper, lower and middle lobes. 7 mm right middle lobe nodular density. Moderate to severe emphysema with associated fibrotic changes. Mild peribronchial thickening, suggestive of airway inflammation. Pleural space: Small to moderate loculated right pleural effusion. No pneumothorax. Heart: Unremarkable. No cardiomegaly. No pericardial effusion. Lymph nodes: Bulky mediastinal and right hilar lymphadenopathy, measuring up to 5.1 x 3.8 cm in the subcarinal region. 1.7 x 1.4 cm epiphrenic lymph node. Liver: Multiple low-density hepatic lesions, measuring up to approximately 1.5 cm in the right hepatic lobe. Adrenals: Nonspecific left greater than right adrenal thickening. Bones/joints: No acute osseous abnormality. Osteopenia. Degenerative changes. Chronic partial L3 and L4 superior endplate compression deformities. Soft tissues: Unremarkable. CT/CT angio chest PE protcl [id number] IMPRESSION: 1. No CT evidence of pulmonary embolism. 2. Suspected right hilar mass, encasing and narrowing the bronchovascular structures and occluding the right lower lobe bronchus. 3. Dense right lower lobe consolidation, compatible with postobstructive pneumonia versus mass. 4. Prominent interstitial thickening and reticulonodular infiltration in the right upper, lower and middle lobes, possibly reflecting lymphangitic spread. 5. 7 mm right middle lobe nodular density, compatible with metastatic disease. 6. Bulky mediastinal and right hilar lymphadenopathy. Mildly enlarged epiphrenic lymph node. 7. Hepatic metastatic disease. 8. Additional findings, as above. Radiation Dose CTDIVOL = (mGy): DLP = 577.12 (mGy-cm)
[2020-04-13] MEDS: iodixanol 320 mg/mL 100mL Btl IV (15:47)
--- NOTE | 2020-04-13 17:28 | PC.NURSE ---
Dr. Lagunas requested that family come in and see pt. Life ending decisions need to be made. Approval by security(BETTY Ware) received and daughter was called to let her know she can come see her mother.
[2020-04-13] MEDS: sodium chloride 0.9% 250 ML IV (17:43)
--- NOTE | 2020-04-13 17:48 | PC.NURSE ---
Dr Lagunas in room with pt and her familiy.
--- NOTE | 2020-04-13 18:44 | P.TS_ITS ---
Transfer Summary Providers Date of Admission: 04/11/20 18:41 Date of Discharge: 04/13/20 Attending Provider at Admission: Landon Lagunas MD Attending Provider at Transfer: Landon Lagunas MD Primary Care Provider: Jese Marinelli MD Anticipated Date of Transfer: Anticipated date of transfer: 04/13/20 Receiving Facility & Provider: Receiving Provider: [[facility]] Receiving facility: [[facility]] Diagnoses at Discharge Discharge Diagnosis (1) Pneumonia: Status: Acute Problem details: Postobstructive. Right hilar mass and right lower lobe bronchus obstruction. Suggestion of hepatic metastasis. Needs consideration of stenting. Qualifiers: Laterality: right Lung location: lower lobe of lung Pneumonia type: due to unspecified organism Qualified Code(s): J18.9 - Pneumonia, unspecified organism (2) Non-ST elevation MD (NSTEMI): Status: Acute Problem details: Likely type II. EF preserved. No acute ischemic changes on EKG. (3) Congestive heart failure: Status: Acute Problem details: Diastolic, currently compensated Qualifiers: Heart failure chronicity: acute Heart failure type: unspecified Qualified Code(s): I50.9 - Heart failure, unspecified (4) Acute exacerbation of chronic obstructive airways disease: Status: Acute Problem details: Improving (5) Hyponatremia: Status: Acute Problem details: Improved from admission with last sodium of 125 (6) Respiratory failure: Status: Acute Problem details: Improved and requiring 60% FiO2 per high flow oxygen (7) Tobacco dependency: Status: Acute Problem details: Counseled on abstaining Reason for Visit Reason for Visit: low o2, sob Hospital Course Hospital Course: Natasha is an 84-year-old white female tobacco user with history of hypertension and COPD who presented with several months of shortness of breath. She had no chest discomfort. While in the ER initially her oxygen saturation was significantly low requiring a nonrebreather. On this her PO2 was 52, with a normal pH and no evidence of hypercarbia. She was transitioned to BiPAP. Chest x-ray showed right lower lobe pneumonia. Sodium was low at 121 and BNP was elevated. Troponin was elevated. Serial troponins were performed suggesting type II elevation. Exam suggested some fluid overload as well. She was admitted to the ICU on BiPAP broad-spectrum antibiotics were initiated along with diuresis. Unfortunately a CT could not be done as she could not lay flat. Diuretics were initiated along with IV steroids, breathing treatments, full dose anticoagulation. With this treatment she did improve to where she was able to get off the BiPAP. Sodium climbed to 125. Echocardiogram that was performed demonstrated a preserved EF but was poor quality. Covid 19 testing was performed and negative. Venous duplex was negative for DVT. With her clinical improvement and able to wean down to FiO2 of 60% she was able to lie flat and get a CTA of her chest. This demonstrated a right hilar mass, encasing the bronchovascular structures and occluding the right lower lobe bronchus. Bulky lymphadenopathy was noted as well as evidence for hepatic metastasis. I discussed with the patient and her daughter the potential need for pulmonary care for bronchoscopy and possible stenting to improve her clinical condition of dyspnea and to reduce FiO2 requirement. They agreed to the risks and benefits of transfer. At the time transfer was arranged vital signs were stable with a blood pressure of 104/57, heart rate of 107 sinus rhythm with frequent PACs, respiratory rate of 20 and a saturation of 90% on 60% FiO2. The patient was talking in full sentences and was in no distress. Full code with exception of no chest compressions. Physical Exam Narrative: EXAM NARRATIVE: General exam is no apparent distress Cardiovascular slight tachycardia with frequent premature beats Lungs diminished breath sounds right lung Abdomen is soft with positive bowel sounds Extremities no cyanosis clubbing. Trace peripheral edema. Urinary Catheter Management^: David: Cath Placed During This Visit: yes Reason for Continuing Indwelling Catheter: Accurate Measurement of Urinary Output in Critically Ill Patients Urinary Catheter Date of Insertion: 04/11/20 Urinary Catheter Time of Insertion: 21:00 TS Data Data Completed and Pending: Completed Studies During Hospitalization Category Date Time Status CT angio chest PE protcl [id number] Rout ine Cat Scan 04/13/20 15:12 Completed XR chest 1V manas ble [id number] Routine Exams 04/12/20 07:26 Completed XR chest 1V manas ble [id number] Urgent Exams 04/11/20 14:50 Completed CV echo complete* [id number] Routine Ultrasound 04/13/20 21:05 [place] [id number] Routin e Ultrasound 04/13/20 21:05 Completed Pending at discharge Category Date Time Status Blood Culture Sta t Lab 04/11/20 17:25 Results Complete Blood Co unt w/Auto DAILY Lab 04/14/20 10:00 Ordered Comprehensive Met abolic Panel AM LA BS Lab 04/14/20 04:00 Ordered Sputum Culture an d Gram Stain Stat Lab 04/11/20 14:50 Uncollected Vancomycin Trough Timed Lab 04/14/20 21:00 Ordered Labs from last 24 hours 04/13/20 04/13/20 04/12/20 04:49 04:49 23:49 WBC 14.8 H RBC 4.90 Hgb 14.3 Hct 41.1 MCV 83.9 MCH 29.2 MCHC 34.8 RDW 14.3 Plt Count 208 MPV 9.1 Neut % (Auto) 90.8 Lymph % (Auto) 3.6 Arthur % (Auto) 4.7 Eos % (Auto) 0.0 Baso % (Auto) 0.1 Neut # (Auto) 13.48 H Lymph # (Auto) 0.5 L Arthur # (Auto) 0.7 Eos # (Auto) 0.0 Baso # (Auto) 0.0 Nucleated RBC % (a uto) 0 Nucleated RBCs # 0.0 Sodium 125 L Potassium 3.9 Chloride 87 L Carbon Dioxide 25 Anion Gap 16.9 BUN 30 H Creatinine 1.5 H Glucose 147 H POC Glucose 177 Calculated Osmolal ity 260 L Calcium 8.0 L Total Bilirubin 0.3 AST 42 H ALT 24 Alkaline Phosphata se 57 Total Protein 5.3 L Albumin 3.0 L Globulin 2.3 Nasal/Oral COVID-1 9 PCR 04/11/20 15:05 WBC RBC Hgb Hct MCV MCH MCHC RDW Plt Count MPV Neut % (Auto) Lymph % (Auto) Arthur % (Auto) Eos % (Auto) Baso % (Auto) Neut # (Auto) Lymph # (Auto) Arthur # (Auto) Eos # (Auto) Baso # (Auto) Nucleated RBC % (a uto) Nucleated RBCs # Sodium Potassium Chloride Carbon Dioxide Anion Gap BUN Creatinine Glucose POC Glucose Calculated Osmolal ity Calcium Total Bilirubin AST ALT Alkaline Phosphata se Total Protein Albumin Globulin Nasal/Oral COVID-1 9 PCR See report Vitals: Last Vital Signs Temp 98.7 F 04/13/20 08:00 Pulse 107 H 04/13/20 17:59 Resp 20 H 04/13/20 17:59 BP 104/57 04/13/20 17:00 Pulse Ox 88 L 04/13/20 17:59 TS Medications Medications Home Medications albuterol sulfate 2 puff INHALATION Q4H PRN 04/11/20 [History Confirmed 04/11/20] aspirin 81 mg PO DAILY 04/11/20 [History Confirmed 04/11/20] hydrocodone-acetaminophen 1 tab PO Q6H PRN 04/11/20 [History Confirmed 04/11/20] lisinopril-hydrochlorothiazide 1 tab PO DAILY 04/11/20 [History Confirmed 04/11/20] ropinirole 2 mg PO BID 04/11/20 [History Confirmed 04/11/20] tramadol 50 mg PO DAILY PRN 04/11/20 [History Confirmed 04/11/20] Active Medications Hydrocodone Bitart/Acetaminophen ([employer] 5-325 Mg) 1 tab PO Q6H PRN PRN Reason: Pain Last Admin: 04/13/20 09:54 Dose: 1 tab Documented by: Albuterol/Ipratropium (Duoneb) 3 ml INHALATION Q4H.RESPIRATORY PRN PRN Reason: SHORTNESS OF BREATH Last Admin: 04/13/20 14:40 Dose: 3 ml Documented by: Aspirin (Aspirin Ec) 325 mg PO DAILY TREASURE Last Admin: 04/13/20 09:08 Dose: 325 mg Documented by: Atorvastatin Calcium (Lipitor) 40 mg PO DAILY TREASURE Last Admin: 04/13/20 09:08 Dose: 40 mg Documented by: Budesonide (Pulmicort) 0.5 mg INHALATION BID.RESPIRATORY TREASURE Last Admin: 04/13/20 07:32 Dose: 0.5 mg Documented by: Enoxaparin Sodium (Lovenox) 40 mg SUBCUT Q24H TREASURE Vancomycin HCl 750 mg/ Sodium (Chloride) 250 mls @ 250 mls/hr IV Q24H TREASURE; Protocol Last Infusion: 04/13/20 01:04 Dose: Infused Documented by: Cefepime HCl 2,000 mg/ Sodium (Chloride) 50 mls @ 100 mls/hr IV Q12H TREASURE; Protocol Last Admin: 04/13/20 17:41 Dose: 100 mls/hr Documented by: Lanolin (Lanolin Oint) 1 applic TOPICAL PRN PRN PRN Reason: DRYNESS Last Admin: 04/13/20 03:23 Dose: 1 applic Documented by: Metoprolol Tartrate (Lopressor) 12.5 mg PO Q12H TREASURE Last Admin: 04/13/20 07:41 Dose: 12.5 mg Documented by: Ondansetron HCl (Zofran) 4 mg IVP Q6H PRN PRN Reason: NAUSEA AND VOMITING Last Admin: 04/13/20 09:07 Dose: 4 mg Documented by: Prednisone (Prednisone) 40 mg PO DAILY [facility] Last Admin: 04/13/20 09:08 Dose: 40 mg Documented by: Ropinirole HCl (Requip) 2 mg PO BID [facility] Last Admin: 04/13/20 17:41 Dose: 2 mg Documented by: Discharge Plan Discharge Patient Disposition: Xfer Short-Term Hosp Condition: Fair Prescriptions: No Action lisinopril-hydrochlorothiazide 20-12.5 mg Tablet 1 tab PO DAILY RF: 0 hydrocodone-acetaminophen 5-325 mg tablet 1 tab PO Q6H PRN (Reason: Pain) RF: 0 tramadol 50 mg Tablet 50 mg PO DAILY PRN (Reason: Pain) RF: 0 ropinirole 2 mg tablet 2 mg PO BID RF: 0 aspirin 81 mg Tablet,Chewable 81 mg PO DAILY RF: 0 albuterol sulfate 90 mcg/actuation Hfa Aerosol Inhaler 2 puff INHALATION Q4H PRN (Reason: Shortness Of Breath) RF: 0 Discharge Orders: Discharge Order (Routine); Ordered 04/13/20 Ordered By: Landon Lagunas Referrals: Jese Marinelli MD [Primary Care Provider] - Transfer Attestations 2 Time Spent in Transfer Care*: greater than 30 min Status at Transfer: Cognitive status at transfer: cognitively intact , Behavioral status at transfer: cooperative , Functional status at transfer: bed bound Quality Metrics Clinical Quality Measures: During this hospital stay, did patient experience: None Coding Level of Care Code 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
--- NOTE | 2020-04-13 21:05 | USCV_ITS ---
Natasha Larose Age: 84 Gender: F : 1935 Exam Date: 04/13/2020 09:51 Ordering Phys: Landon Lagunas MD Technologist: Nay Hunt Exam Location: [facility]_ Indication: CHF BP: 103 / 52 HR: 95 Rhythm: Other Technical Quality: Technically difficult study MEASUREMENTS (Male / Female) Normal Values 2D ECHO LV Diastolic Diameter PLAX 2.9 cm 4.2 - 5.9 / 3.9 - 5.3 cm LV Systolic Diameter PLAX 2.0 cm LV Chamber Size 2.8 cm IVS Diastolic Thickness 1.7 cm 0.6 - 1.0 / 0.6 - 0.9 cm IVS Systolic Thickness 1.1 cm LVPW Diastolic Thickness 0.9 cm 0.6 - 1.0 / 0.6 - 0.9 cm LVPW Systolic Thickness 1.3 cm RV Chamber Size 2.4 cm LVOT Diameter 1.9 cm LV Ejection Fraction 2D Teich 61.8 % LV Ejection Fraction MOD 2C 60.4 % LV Ejection Fraction 2C AL 59.0 % LA Diameter 3.3 cm LA Width 2.0 cm LA Height 4.5 cm RA Width 2.0 cm RA Height 3.0 cm Aorta at Sinotubular Diameter 2.0 cm M-MODE LV Diastolic Diameter MM 2.8 cm 4.2 - 5.9 / 3.9 - 5.3 cm LV Systolic Diameter MM 2.1 cm LV Ejection Fraction MM Teich 53.4 % IVS Diastolic Thickness MM 1.4 cm 0.6 - 1.0 / 0.6 - 0.9 cm IVS Systolic Thickness MM 1.9 cm LVPW Diastolic Thickness MM 1.3 cm 0.6 - 1.0 / 0.6 - 0.9 cm LVPW Systolic Thickness MM 1.3 cm Aortic Annulus Diameter 3.0 cm LA Ao Ratio MM 1.1 MV E Point Septal Separation 0.6 cm DOPPLER AV Peak Velocity 126.0 cm/s LVOT Peak Velocity 115.0 cm/s AV Area Cont Eq vti 2.7 cm squared AV Area Cont Eq pk 2.5 cm squared MV Area PHT 3.3 cm squared Mitral E to A Ratio 0.9 MV E' Velocity 89.0 cm/s TV Peak E Velocity 70.0 cm/s Right Atrial Pressure 15.0 mmHg FINDINGS Left Ventricle Study is technically difficult due to the patient's inability to cooperate and in irregular rhythm and tachycardia. The ventricle is probably normal in size and function. Ejection fraction is likely in the 60% range. No obvious wall motion disturbances. Cannot assess diastolic function. Right Ventricle Normal right ventricular size and systolic function. Right Atrium The right atrium is normal in size. Left Atrium The left atrium is normal in size. Mitral Valve Mitral valve not well visualized. Aortic Valve Aortic valve not well visualized. Tricuspid Valve Tricuspid valve not well visualized. Pulmonic Valve Pulmonic valve not well visualized. Pericardium Normal pericardium without effusion. Aorta Normal ascending aorta dimension. CONCLUSIONS Study is technically difficult due to the patient's inability to cooperate and in irregular rhythm and tachycardia. The ventricle is probably normal in size and function. Ejection fraction is likely in the 60% range. No obvious wall motion disturbances. Cannot assess diastolic function. There are no prior echocardiogram studies to compare. Dr. Malvin Owens MD (Electronically Signed) Final Date: 13 April 2020 12:40 S
--- NOTE | 2020-04-13 21:05 | USR_ITS ---
PROCEDURE INFORMATION: Exam: US Duplex Lower Extremity Veins, Bilateral Exam date and time: 04/12/2020 5:12 PM Age: 84 years old Clinical indication: Edema, localized; Lower extremity, bilateral TECHNIQUE: Imaging protocol: Real-time duplex ultrasound of the extremities with 2-D macias scale, color Doppler flow and spectral waveform analysis with image documentation. Complete exam focused on the bilateral lower extremity veins. COMPARISON: No relevant prior studies available. FINDINGS: Right deep veins: Unremarkable. The common femoral, femoral, proximal profunda femoral, popliteal, posterior tibial and peroneal veins are patent without thrombus. Normal Doppler waveforms. Normal compressibility and/or augmentation response. Right superficial veins: Saphenofemoral junction is patent without thrombus. Left deep veins: Unremarkable. The common femoral, femoral, proximal profunda femoral, popliteal, posterior tibial and peroneal veins are patent without thrombus. Normal Doppler waveforms. Normal compressibility and/or augmentation response. Left superficial veins: Saphenofemoral junction is patent without thrombus. Soft tissues: Unremarkable. US/CV venous duplex [facility] [id number] IMPRESSION: No sonographic evidence of deep vein thrombosis.
--- NOTE | 2020-04-13 21:16 | PC.NURSE ---
PT DISCHARGED VIA EMS TO [facility]. PT ALERT, ORIENTATED, AND IN NO DISTRESS WHEN LEAVING.
== END 2020-04-13 21:13 | disposition short-term general hospital (02) | DRG 193 ==
LOC: ER 18:31 → ICU 19:08
PROVIDERS: Hospitalist; Admitting Provider Internal Medicine; Emergency Provider Family Medicine; PCP Family Medicine; Visit Provider Internal Medicine
DX: J18.9 Pneumonia, unspecified organism (principal); J96.90 Respiratory failure, unspecified, unspecified whether with hypoxia or hypercapnia; I21.A1 Myocardial infarction type 2; I50.31 Acute diastolic (congestive) heart failure; J44.1 Chronic obstructive pulmonary disease with (acute) exacerbation; E87.1 Hypo-osmolality and hyponatremia; I11.0 Hypertensive heart disease with heart failure; F17.210 Nicotine dependence, cigarettes, uncomplicated; Z79.82 Long term (current) use of aspirin; E78.5 Hyperlipidemia, unspecified; G25.81 Restless legs syndrome
CPT/HCPCS: 12345; 36415; 36416; 36600; 51702; 71045; 71275; 80048; 80053; 81003; 82803; 82962; 83036; 83605; 83735; 83880; 84100; 84443; 84484; 85025; 87040; 87635; 87641; 87804; 93005; 93306; 93970; 94640; 94660; 96372; 96375; 99283; J0456; J0692; J0696; J1650; J1940; J2060; J2405; J2930; J3370; J7040; J7050; J7512; J7626; Q9967